=== PATIENT | female | born 1965 | race Caucasian/White ===

== ENCOUNTER 2019-07-19 12:02 | Emergency (ER) | payer MEDICAID ==
[~2019-07-19] VITALS: Ht 157.5 cm; Wt 77.1 kg
[~2019-07-19 12:02] MED LIST: ACET325 PO; ALBU8HFA2 INH; ALBU90OI INH; ALBU90OI61 INH; CYCL10 PO; IBUP600 PO; NAPR500 PO; Nexium40 MG PO; PIRBIS IH; PRED20 PO; RANI150 PO; SULTRIDS PO; TRIAOI IH; Ventolin Soln3 ML INH; ZYRTEC10 M1 PO; [UNRECOGNIZED DRUG - OTHER]
[2019-07-19] MEDS ORDERED: Sudogest60 MG PO (13:24)
[2019-07-19] MEDS ORDERED: LORATADINE10 MG PO (13:24)
== END 2019-07-19 13:45 | disposition home or self-care (01) ==
LOC: ER 12:02
DX: J01.90 Acute sinusitis, unspecified (principal); R11.0 Nausea; Z87.891 Personal history of nicotine dependence
CPT/HCPCS: 94640; 96361; 96374; 96375; 99283-25; J0780; J1200; J1885; J7030

== ENCOUNTER 2020-02-21 15:27 | Emergency (ER) | payer OTHER ==
[~2020-02-21] VITALS: Ht 157.5 cm; Wt 81.7 kg
[~2020-02-21 15:27] MED LIST changes: +LORATADINE10 MG PO; +Sudogest60 MG PO
[2020-02-21] MEDS ORDERED: Roxicodone5 MG PO (17:35)
[2020-02-21] MEDS ORDERED: Mupirocin22 GM TOP (17:36)
== END 2020-02-21 17:45 | disposition home or self-care (01) ==
LOC: ER 15:27
DX: T23.202A Burn of second degree of left hand, unspecified site, initial encounter (principal); T23.201A Burn of second degree of right hand, unspecified site, initial encounter; T22.212A Burn of second degree of left forearm, initial encounter; T22.211A Burn of second degree of right forearm, initial encounter; T22.232A Burn of second degree of left upper arm, initial encounter; T22.231A Burn of second degree of right upper arm, initial encounter; T21.01XA Burn of unspecified degree of chest wall, initial encounter; T20.00XA Burn of unspecified degree of head, face, and neck, unspecified site, initial encounter; T31.11 Burns involving 10-19% of body surface with 10-19% third degree burns; Z79.899 Other long term (current) drug therapy; Z87.891 Personal history of nicotine dependence; X02.8XXA Other exposure to controlled fire in building or structure, initial encounter
CPT/HCPCS: 36415; 96374; 99283-25; A9270; J1170

== ENCOUNTER 2020-04-24 01:07 | Emergency (ER) | payer OTHER ==
[~2020-04-24] VITALS: Ht 157.5 cm; Wt 81.7 kg
[~2020-04-24 01:07] MED LIST changes: +Mupirocin22 GM TOP; +Roxicodone5 MG PO
[2020-04-24] MEDS ORDERED: Hydroxyzine HCl50 MG (02:05)
[2020-04-24 02:31] LABS: BASOPHILS PERCENT AUTO 2 % (0-2); EOSINOPHILS ABSOLUTE AUTO 0.34 K/mm3 (0.00-0.68); EOSINOPHILS PERCENT AUTO 5 % (0-6); Hematocrit 42.5 % (33.0-51.0); Hemoglobin 14.7 g/dL (11.5-16.0); IMMATURE GRAN ABSOLUTE AUTO 0.02 K/mm3 (0.00-0.10); IMMATURE GRAN PERCENT AUTO 0 % (0-1); LYMPHOCYTES ABSOLUTE AUTO 3.25 K/mm3 (0.84-5.20); LYMPHOCYTES PERCENT AUTO 48 % (21-46); MONOCYTES ABSOLUTE AUTO 0.81 K/mm3 (0.16-1.47); MONOCYTES PERCENT AUTO 12 % (4-13); Mean Corpuscular HGB 32.5 pg (26.0-34.0); Mean Corpuscular HGB Conc 34.6 g/dL (31.5-36.5); Mean Corpuscular Volume 94 fL (80-100); Mean Platelet Volume 9.6 fL (9.1-12.4); NEUTROPHILS ABSOLUTE AUTO 2.27 K/mm3 (1.96-9.15); NEUTROPHILS PERCENT AUTO 33 % (41-73); Platelet Count 263 K/mm3 (150-400); RDW Coefficient Variation 13.2 % (11.7-14.2); RDW Standard Deviation 45.3 fL (35.1-46.3); Red Blood Cell Count 4.53 M/mm3 (3.80-5.20); White Blood Cell Count 6.79 K/mm3 (4.00-11.30)
[2020-04-24 02:51] LABS: Alanine Aminotransfer (ALT/SGP 123 U/L (12-78); Albumin, Blood 3.7 g/dL (3.4-5.0); Alk Phos 93 U/L (50-136); Anion Gap 7 mmol/L (6-16); Aspartate Aminotrans (AST/SGOT 79 U/L (12-37); Bilirubin, Total 0.3 mg/dL (0.1-1.0); Blood Urea Nitrogen 15 mg/dL (8-24); Bun/Creatinine Ratio 23.7 (12.0-20.0); C-REACTIVE PROTEIN, EXT RANGE <0.290 mg/dL (0.000-0.300); CO2, Blood 24 mmol/L (21-32); Calcium, Blood 8.6 mg/dL (8.5-10.1); Chloride, Blood 110 mmol/L (98-108); Creatinine, Blood 0.63 mg/dL (0.40-1.00); Globulin, Blood 3.7 g/dL (2.2-4.0); Glomerular Filtration Rate >60 (60-); Glucose, Blood 108 mg/dL (70-99); Potassium, Blood 3.7 mmol/L (3.5-5.5); Sodium, Blood 141 mmol/L (136-145); Total Protein, Blood 7.4 g/dL (6.4-8.2); Troponin I <0.015 ng/mL (0.000-0.040)
[2020-04-24] MEDS ORDERED: Prednisone20 MG PO (03:05)
== END 2020-04-24 03:11 | disposition home or self-care (01) ==
LOC: ER 01:07
PROVIDERS: Emergency Medicine
DX: J45.901 Unspecified asthma with (acute) exacerbation (principal); Z87.891 Personal history of nicotine dependence
CPT/HCPCS: 36415; 71045; 80053; 83880; 84484; 85025; 86140; 93005; 93010; 94640; 99285-25; J7512